=== PATIENT | male | born 1980 | race Caucasian/White ===

== ENCOUNTER 2020-11-14 19:57 | Emergency (ER) | payer OTHER ==
[~2020-11-14] VITALS: Ht 180.3 cm; Wt 86.3 kg
[2020-11-14 20:32] VITALS: BP 151/92
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
[2020-11-14] MEDS ORDERED: CYCL-331 PO (20:38)
[2020-11-14] MEDS ORDERED: oxyCODONE/APAP 5/325 1 TAB TABLET PO ONE (20:45)
[2020-11-14] MEDS ORDERED: CYCLOBENZAPRINE 10 MG TABLET. PO ONE (20:45)
[2020-11-14] MEDS ORDERED: IBUPROFEN 600 MG TABLET. PO ONE (20:45)
[2020-11-14] MEDS ORDERED: LIDOCAINE (700MG/PATCH) PATCH. ONE (21:00)
[2020-11-15] MEDS ORDERED: LIDOCAINE (700MG/PATCH) PATCH. TD SCH (09:00)
[2020-11-15] MEDS ORDERED: PATCH REMOVAL. MC SCH (21:00)
== END 2020-11-14 21:04 | disposition home or self-care (01) ==
LOC: ER 19:57
DX: M25.512 Pain in left shoulder (principal); X58.XXXA Exposure to other specified factors, initial encounter; Y93.89 Activity, other specified; Y92.89 Other specified places as the place of occurrence of the external cause; Y99.8 Other external cause status
CPT/HCPCS: 99284-25

== ENCOUNTER 2020-11-15 19:13 | Emergency (ER) | payer OTHER ==
[~2020-11-15] VITALS: Ht 180.3 cm; Wt 91.0 kg
[~2020-11-15 19:13] MED LIST: CYCL-331 PO
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
[2020-11-15] MEDS ORDERED: CYCLOBENZAPRINE 10 MG TABLET. PO ONE (20:00)
[2020-11-15] MEDS ORDERED: IBUPROFEN 600 MG TABLET. PO ONE (20:00)
[2020-11-15] MEDS ORDERED: oxyCODONE/APAP 5/325 1 TAB TABLET PO ONE (20:00)
[2020-11-16 04:42] VITALS: BP 142/79
== END 2020-11-15 20:37 | disposition home or self-care (01) ==
LOC: ER 19:13
DX: M25.512 Pain in left shoulder (principal)
CPT/HCPCS: 99284